=== PATIENT | male | born 2000 | race Caucasian/White ===

== ENCOUNTER 2019-09-09 16:11 | Emergency (ER) | payer MEDICAID ==
[~2019-09-09] VITALS: Ht 167.6 cm; Wt 65.9 kg
[2019-09-09 17:20] VITALS: BP 128/70
== END 2019-09-09 17:50 | disposition home or self-care (01) ==
LOC: EMS 16:14
DX: K64.8 Other hemorrhoids (principal); F12.90 Cannabis use, unspecified, uncomplicated